=== PATIENT | female | born 2000 | race Caucasian/White ===

== ENCOUNTER 2020-05-27 23:02 | Observation (INO) | payer BC ==
[~2020-05-27] VITALS: Ht 162.6 cm; Wt 56.8 kg
[2020-05-28 00:32] LABS: COLLECTION METHOD CLEAN CATCH
[2020-05-28 00:40] LABS: MUCOUS Present /lpf; PH 5 (5-8); URINE APPEARANCE Hazy; URINE BACTERIA Rare /hpf; URINE BILIRUBIN Negative (NEGATIVE); URINE BLOOD Negative (NEGATIVE); URINE COLOR Yellow; URINE GLUCOSE Negative (NEGATIVE); URINE KETONE Trace (NEGATIVE); URINE LEUKOCYTE ESTERASE 2+ (NEGATIVE); URINE NITRATE Negative (NEGATIVE); URINE PROTEIN(semi-quant) Negative (NEGATIVE); URINE UROBILINOGEN Negative (NEGATIVE)
[2020-05-28 00:44] LABS: HEMATOCRIT 47.4 % (37.0-47.0); HEMOGLOBIN 15.5 g/dl (12.5-16.0); MEAN CELL VOLUME 89 fl (80.0-100.0); MEAN CORPUSCULAR HEMOGLOBIN 29 pg (27.0-31.0); MEAN CORPUSCULAR HGB CONC 33 g/dl (33.0-37.0); MEAN PLATELET VOLUME 10.4 fl (7.4-10.4); PLATELET COUNT 334 K/mm3 (130-400); RED BLOOD COUNT 5.34 M/mm3 (4.10-5.30); REDCELL DISTRIBUTION WIDTH-CV 13.2 % (11.5-14.5)
[2020-05-28 00:52] LABS: ALBUMIN 4.5 gm/dL (3.5-5.0); BILIRUBIN,TOTAL 0.6 mg/dL (0.0-1.0); CALCIUM 9.3 mg/dL (8.4-10.2); CREATININE, serum 0.96 (0.52-1.25); POTASSIUM 3.7 mmol/L (3.4-5.0)
[2020-05-28 03:09] LABS: BAND 32 % (0-10); LYMPHOCYTE 4 % (20.0-51.0); NEUTROPHILS 60 % (42.0-75.2); PLATELET ESTIMATE NORMAL (NORMAL)
--- NOTE | 2020-05-28 03:40 | NUR ---
Patient to room 222 via wheelchair from ER. Patient is alert and oriented. IV noted to left AC, NS infusing at 125 ml/hr per orders. VS obtained and WNL. Patient rates pain in left lower abdomen at 8/10, she denies N/V at this time. Dilaudid given IVP per orders - see eMAR for details. Patient oriented to room and call light. Plan of care reviewed including NPO status and need to call before going to the bathroom. Patient states understanding.
[2020-05-28 03:45] VITALS: BP 101/63; PULSE 78; TEMP 98.2
[2020-05-28 08:30] VITALS: BP 101/61; PULSE 79; TEMP 98.4
[2020-05-28 11:46] VITALS: BP 94/58; PULSE 72; TEMP 98
[2020-05-28 12:43] LABS: BASO # 0.1 (0.0-0.2); BASO % 0.5 % (0.0-2.0); EOS # 0.2 (0.0-0.7); EOS % 1.9 % (0-4.0); GRAN # 7.4 (1.4-6.5); GRAN % 66.4 % (42.2-75.2); HEMATOCRIT 36.8 % (37.0-47.0); LYMPH # 2.7 (1.2-3.4); LYMPH % 24.2 % (20.0-51.0); MEAN CELL VOLUME 90 fl (80.0-100.0); MEAN CORPUSCULAR HEMOGLOBIN 29 pg (27.0-31.0); MEAN CORPUSCULAR HGB CONC 32 g/dl (33.0-37.0); MEAN PLATELET VOLUME 10.3 fl (7.4-10.4); MONO # 0.7 (0.1-0.6); MONO % 6.7 % (1.7-9.3); PLATELET COUNT 254 K/mm3 (130-400); RED BLOOD COUNT 4.09 M/mm3 (4.10-5.30); REDCELL DISTRIBUTION WIDTH-CV 13.2 % (11.5-14.5)
[2020-05-28 12:45] LABS: HEMOGLOBIN 11.9 g/dl (12.5-16.0)
[2020-05-28 12:50] LABS: ALBUMIN 3.4 gm/dL (3.5-5.0); BILIRUBIN,TOTAL 0.9 mg/dL (0.0-1.0); CALCIUM 8.2 mg/dL (8.4-10.2); CREATININE, serum 0.91 (0.52-1.25); POTASSIUM 3.7 mmol/L (3.4-5.0); TOTAL PROTEIN 6.2 gm/dL (6.4-8.2)
--- NOTE | 2020-05-28 14:14 | NUR ---
CALLED RT AND SPOKE WITH ZENA ASKING HER TO PLEASE BRING AN INCENTIVE SPIROMETER IT WAS ORDERED BY DR CALLAHAN
--- NOTE | 2020-05-28 14:22 | NUR ---
IV PUMP TURNED OFF AND IV TUBING DISCONNECTED. PT UP TO SHOWER. AMBULATES WITHOUT DIFFICULTY.
[2020-05-28] MEDS ORDERED: PERCOCET 325 MG1 TA2 PO (14:27)
[2020-05-28] MEDS ORDERED: IBU600 MG PO (14:28)
[2020-05-28] MEDS ORDERED: CEPHALEXIN500 M1 PO (14:28)
[2020-05-28 15:45] VITALS: BP 104/66; PULSE 64; TEMP 97.9
[2020-05-28 17:25] LABS: HEMOGLOBIN 11.3 g/dl (12.5-16.0)
[2020-05-28 17:28] LABS: HEMATOCRIT 34.9 % (37.0-47.0)
--- NOTE | 2020-05-28 20:20 | NUR ---
Discharge instructions reviewed with tristen. Questions invited and answered. Ambulatory off unit.
== END 2020-05-28 20:20 | disposition home or self-care (01) ==
LOC: COL.ER 23:02 → OB 05-28 01:43
PROVIDERS: Emergency Medicine; ADMIT Surgery
DX: R10.31 Right lower quadrant pain (principal); N83.209 Unspecified ovarian cyst, unspecified side; D64.9 Anemia, unspecified; D72.829 Elevated white blood cell count, unspecified; F17.210 Nicotine dependence, cigarettes, uncomplicated; N92.5 Other specified irregular menstruation
CPT/HCPCS: A9284; G0378; J0692; J0696; J1170; J2405; J3010; J7030; J7120; Q9967